=== PATIENT | female | born 1970 ===

== ENCOUNTER 2018-03-11 08:18 | Day surgery (SDC) | payer OTHER ==
[~2018-03-11] VITALS: Ht 30.5 cm; Wt 0.5 kg
[2018-03-11] VITALS (9 sets, daily range): BP systolic 107–145; BP diastolic 57–78
--- NOTE | 2018-03-11 06:40 | Anethesia Preoperative Eval ---
Anesthesia Pre-op PMH/ROS General Date of Evaluation: Mar 11, 2018 Time of Evaluation: 06:39 Anesthesiologist: jabari ASA Score: ASA 2 Mallampati Score Class I : Soft palate, uvula, fauces, pillars visible Class II: Soft palate, uvula, fauces visible Class III: Soft palate, base of uvula visible Class IV: Only hard plate visible Mallampati Classification: Class II Surgeon: becki Diagnosis: gerd Surgical Procedure: egd Anesthesia History: none Social History: smoking - nonsmoker Family History: no anesthesia problems Allergies: Coded Allergies: SULFA (SULFONAMIDE ANTIBIOTICS) (Unverified Allergy, Unknown, 03/10/18) Uncoded Allergies: SULFA (Allergy, Mild, 03/10/18) Medications: see eMAR Patient NPO?: Yes Past Medical History Gastrointestinal/Genitourinary: Reports: GERD Anesthesia Pre-op Phys. Exam Physician Exam Last Vital Signs Date Time Temp Pulse Resp B/P (MAP) Pulse Ox O2 Delivery O2 Flow Rate FiO2 03/11/18 09:26 Room Air 03/11/18 09:23 98.0 66 20 121/67 98 Constitutional: NAD Neurologic: CN 2-12 intact Cardiovascular: RRR Respiratory: CTA Gastrointestinal: S/NT/ND Airway Exam Mallampati Score: Class II MO: full Neck: supple TMD: 2fb ROM: full Anesthesia Pre-op A/P Risk Assessment & Plan Assessment: asa2 Plan: mac Status Change Before Surgery: No Pre-Antibiotics Drug: Glory Mckeon MD Mar 11, 2018 06:40
[~2018-03-11 08:18] MED LIST: Atropine Inj 1mg/10ml Syr IV PRN; DiphenhydrAMINE 50mg/ml Inj IVP PRN; LR 1000ml 1,000 ML IVLG SCH; MAGNESIUM400 M1 PO; Midazolam 2mg/2ml Inj IVP PRN; PANTO; [UNRECOGNIZED DRUG - OTHER]; [UNRECOGNIZED DRUG - OTHER] PO; fentaNYL 100 mcg/2 mL IV PRN
[2018-03-11] MEDS ORDERED: linzess PO (09:18)
[2018-03-11] MEDS ORDERED: LANSOPRAZOLE30 MG ORAL (09:22)
[2018-03-11] MEDS ORDERED: LR 1000ml ONE (10:03)
[2018-03-11] MEDS ORDERED: Lidocaine 1% MPF 10mg/ml 5ml ONE (10:03)
[2018-03-11] MEDS ORDERED: Propofol 200mg/20ml IV ONE (10:03)
--- NOTE | 2018-03-11 10:16 | Short Stay Surgery H&P ---
History of Present Illness History of Present Illness Chief Complaint Abdominal pains/acid reflux/GERD HPI Angela England is a 47 year old female who was admitted on for GERD/abdominal pains Patient History Allergies: Coded Allergies: SULFA (SULFONAMIDE ANTIBIOTICS) (Unverified Allergy, Unknown, 03/10/18) Uncoded Allergies: SULFA (Allergy, Mild, 03/10/18) PAST MEDICAL HISTORY: (1) Diabetes (2) H/O colectomy Medication History Scheduled Lansoprazole* (Lansoprazole*), 30 MG ORAL DAILY, (Reported) Magnesium Oxide (Magnesium), 800 MG PO DAILY, (Reported) [linzess], 1 CAP PO DAILY, (Reported) Review of Systems Cardiovascular: Reports: no symptoms Respiratory: Reports: no symptoms Skeletal: Reports: trauma Gastrointestinal: Reports: gastro esophageal reflux disease Genitourinary: Reports: no symptoms Neurologic: Reports: no symptoms Endocrine: Reports: diabetes - type 2 Hematologic: Reports: no symptoms Physical Exam Vital Signs Last Vital Signs Date Time Temp Pulse Resp B/P (MAP) Pulse Ox O2 Delivery O2 Flow Rate FiO2 03/11/18 09:26 Room Air 03/11/18 09:23 98.0 66 20 121/67 98 Labs Laboratory Tests Test 03/11/18 08:30 Urine HCG, Qualitative Negative (NEGATIVE) Skin: normal HENT: normal Heart: normal Lungs: normal Abdomen: abnormal Extremities: normal Genitourinary: normal Plan Plan of Care Upper GI endoscopy and biopsy Preop Interventions None. Summary of Findings see the reports Attestation Are the patient's medical conditions optimized for surgery? Attestation Response: yes Sushila Wilson MD Mar 11, 2018 10:16
--- NOTE | 2018-03-11 10:17 | Pre-Procedure Note/Attestation ---
Pre-Procedure Note/Attestation Complete Prior to Procedure Planned Procedure: left Procedure Narrative: Endoscopic exam of the upper GI. tract Indications for Procedure Pre-Operative Diagnosis: R/O Peptic ulcer/gastritis Attestation I attest that I discussed the nature of the procedure; its benefits; risks and complications; and alternatives (and the risks and benefits of such alternatives ), prior to the procedure, with the patient (or the patient's legal customer service representative). I attest that, if there was a reasonable possibility of needing a blood transfusion, the patient (or the patient's legal customer service representative) was given the [facility] standardized written summary, pursuant to the Didier Bennett Blood Safety Act ([place] Health and Safety Code # 1645, as amended). I attest that I re-evaluated the patient just prior to the surgery and that there has been no change in the patient's H&P, except as documented below: Sushila Wilson MD Mar 11, 2018 10:17
--- NOTE | 2018-03-11 10:56 | Endoscopy Procedure Note ---
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 1/2 CM gastric polyp in mid body of stomach (greator curc ) removed by hot snare. Mild antritis biopsied. Specimen: yes Pt Tolerated Procedure Well: Yes Estimated Blood Loss: none Anesthesia Anesthesiologist: Dr. Feliz Anesthesia: moderate sedation Medications Medication Given: see anesthesia record Inserted Devices Implant(s) used?: No Quality Quality of Bowel Preparation: Excellent Was there any complications?: No GI Core Measures 50 yrs or older w/o bx or poly: Not Applicable 10yrs. F/U not recommended: Not Applicable If not recommended, why?: Med reason:<3 yrs.: System Reason:<3 yrs.: Last colonoscopy >= to 3yrs: No Sushila Wilson MD Mar 11, 2018 10:56
--- NOTE | 2018-03-11 10:57 | Discharge Instructions ---
Discharge Instructions Discharge Instructions Follow up with: Visit the docotr in the office after two weeks For Congestive Heart Failure Reminder Report to your physician any weight gain of 5 pounds or more in one week. Sushila Wilson MD Mar 11, 2018 10:57
--- NOTE | 2018-03-11 11:37 | Immediate Post-Op Evaluation ---
Immediate Post-Op Evalulation Immediate Post-Op Evalulation Procedure: egd w/bx Date of Evaluation: Mar 11, 2018 Time of Evaluation: 11:10 IV Fluids: 400ml lr Blood Products: none Estimated Blood Loss: negligible Blood Pressure Systolic: 116 Blood Pressure Diastolic: 76 Pulse Rate: 69 Respiratory Rate: 18 O2 Sat by Pulse Oximetry: 100 Temperature (Fahrenheit): 97.1 Pain Score (1-10): 0 Nausea: No Vomiting: No Complications none Patient Status: awake, reacts, patent Hydration Status: adequate Drug: Glory Mckeon MD Mar 11, 2018 11:37
--- NOTE | 2018-03-11 11:39 | 48 Hour Post Anesthesia Eval ---
Post Anesthesia Evaluation Procedure: egd w/bx Date of Evaluation: Mar 11, 2018 Time of Evaluation: 11:13 Blood Pressure Systolic: 115 0: 77 Pulse Rate: 64 Respiratory Rate: 18 Temperature (Fahrenheit): 97.1 O2 Sat by Pulse Oximetry: 100 Airway: patent Nausea: No Vomiting: No Pain Intensity: 0 Hydration Status: adequate Cardiopulmonary Status: stable Mental Status/LOC: patient returned to baseline Post-Anesthesia Complications: none Follow-up care needed: N/A Glory Hamilton MD Mar 11, 2018 11:39
--- NOTE | 2018-03-11 21:00 | Pre-op HX & Phy Repo 2 SIG ---
DATE OF ADMISSION: 03/11/2018 HISTORY OF PRESENT ILLNESS: This patient who is a 47-year-old non-Macedonian speaking female is being seen for the physical examination prior to undergoing the procedure of upper GI endoscopy for which she has been scheduled to receive for evaluation of gastrointestinal conditions and symptoms that she has been suffering subsequent to her work injury. Please be advised this examination had to be done as the patient was going to be receiving anesthesia and should be cleared medically. 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 In that process, she developed injuries, which was consistently cervical spine injury, dorsolumbar disk disease as well. Subsequently, she received multiple medications and physical examinations and physical therapy and receives numerous type of medications including nonsteroidal anti-inflammatory agents that she is still taking. The patient is telling me today that she has to continue taking this medications of nonsteroidal anti-inflammatory type as she continues to have pain in the injured areas as mentioned, mostly dorsolumbar spine. The patient also has had history of diverticulitis in the past for which she has received adequate treatment in the past at [facility]. This is not work related. The patient, at this time, is complaining of pain being experienced mostly over the upper part of the abdomen radiating towards the chest area. There is no history of any recent GI bleeding such as hematemesis, melena, hematochezia, etc. 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 The applicant has been suffering from significant morbid obesity, which is a nonindustrial condition as well and currently is considering to undergo bariatric surgery. PAST MEDICAL HISTORY: Diverticulitis, as I mentioned that required surgery and morbid obesity. She has also had history of hypertension. Possibly borderline diabetes as well. SURGICAL HISTORY: As I mentioned, the applicant had undergone left sigmoid colectomy due to diverticulitis. ALLERGIES: Sulfa. FAMILY HISTORY: None significant. HABITS: The applicant denies drinking alcohol or smoking cigarettes. CURRENT MEDICATIONS: Dulcolax, Maalox, omeprazole, and naproxen. REVIEW OF SYSTEMS: Basically history of present illness, the applicant basically complaining pain being experienced over the neck and lower back area. She denies any dysuria, pyuria, or hematuria. There has been history of as I mentioned borderline diabetes, but otherwise unremarkable. She also complained of significant depressive mood with anxiety. Neurologically, she complains of tingling sensations over the upper and lower part of the body. PHYSICAL EXAMINATION: GENERAL: At this time reveals alert, well-oriented female, does not seem to be in any acute distress. She looks morbidly obese with significant weight. VITAL SIGNS: Otherwise, all the vital signs are stable. HEENT: Normocephalic. Pupils equal in size and reactive to light and accommodation. No visible jaundice. NECK: Supple. No JVD. No thyromegaly. CHEST: Clear to auscultation and percussion. No rales or rhonchi. HEART: S1 and S2 normal. Regular rhythm. No gallops or murmur. ABDOMEN: Quite obese. There is some areas of tenderness over the upper part of the abdomen. Otherwise, there is no hepatosplenomegaly. No palpable mass noted. There is a scar in mid abdomen consistent with prior surgery. EXTREMITIES: Unremarkable. No pretibial edema, cyanosis, or clubbing. SKIN AND LYMPHATICS: Nonsignificant. PREOPERATIVE PRELIMINARY IMPRESSION: 1. Abdominal pain of uncertain etiology, epigastric pain, rule out gastroesophageal acid reflux aggravated by side effects of NSAID medications and anxiety related to work accident. 2. History of chronic gastroesophageal acid reflux aggravated by obesity, anxiety, and side effects of NSAID medication. 3. Hypertension and possibly prediabetic state. 4. Status post partial left colectomy due to diverticulitis. RECOMMENDATIONS: The applicant seems to be stable at this time to undergo the procedure of upper GI endoscopy for which she has been scheduled. She understands the risks and benefits and was signed the consent. Said Ascencion Wilson DR: CLARK JOB#: [id number] CC:
--- NOTE | 2018-03-11 21:45 | Operative Note - Dictated ---
DATE OF OPERATION: 03/11/2018 SURGEON: Sushila Wilson M.D. PROCEDURE: Esophagogastroduodenoscopy with biopsy and polypectomy. PREOPERATIVE DIAGNOSES: Abdominal pain, epigastric pain, history of gastroesophageal reflux, rule out esophagitis, gastritis, and peptic ulcer disease. POSTOPERATIVE DIAGNOSES: 1. Evidence of mild . 2. Numerous small hyperplastic polypoid lesions seen in the stomach consistent with gastric polyposis, biopsied. 3. A 0.5 cm gastric polyp removed from greater curvature body of the stomach with a snare cautery forceps. MEDICATION USED: Per Dr. Feliz, anesthesiologist. INSTRUMENT: GIF Olympus upper GI video endoscope. DESCRIPTION OF PROCEDURE: The patient after arriving in the endoscopy unit, was told about risks and benefits of the procedure, which she accepted and signed informed consent. She was then put on the left lateral decubitus position. After adequate IV sedation, the scope was gently passed through the cricopharyngeal area, was lodged into the upper esophagus and gradually advanced towards gastroesophageal junction. The entire length of esophagus looked normal without any evidence of pathology. GE junction also looked normal without evidence of hiatal hernia or Badillo's. At this time, the scope was advanced into the stomach and gastric cavity was distended with insufflation of air. Gradually, the areas of the fundus and the body and the antrum were examined. There was immediately seen significant numbers of small hyperplastic fundic polypoid lesions over the gastric curvature and posterior wall. This was thought probably secondary to one of the side effects of PPIs that the applicant has been taking. One of these small hyperplastic polypoid lesions was biopsied and subsequently incidentally there was another 0.5 cm polypoid lesion, which was pedunculated and it was grabbed with a snare cautery forceps and totally removed and sent to pathology lab. The rest of the gastric cavity was examined, which revealed evidence of mild inflammatory process in the prepyloric antral area and multiple biopsies from this area were obtained; however, there was no any evidence of ulcers, bleeding, etc. Subsequently, the scope was passed through the normal looking pylorus. First and second portions of duodenum were found to be also completely within normal limits. At this point, the scope was pulled out and the procedure was terminated. The patient tolerated the procedure well and left the endoscopy room in a good condition. Said Ascencion Wilson DR: MIRA JOB#: [id number] CC:
== END 2018-03-11 12:20 | disposition home or self-care (01) ==
LOC: GAS 08:18
DX: K29.50 Unspecified chronic gastritis without bleeding (principal); K31.7 Polyp of stomach and duodenum; K21.9 Gastro-esophageal reflux disease without esophagitis; I10 Essential (primary) hypertension; E66.01 Morbid (severe) obesity due to excess calories; Z87.19 Personal history of other diseases of the digestive system; Z88.2 Allergy status to sulfonamides
CPT/HCPCS: 43251; 81025; 82962; J2704; 94003; 94150